=== PATIENT | female | born 1950 | race Caucasian/White ===

== ENCOUNTER 2019-06-30 07:43 | Day surgery (SDC) | payer OTHER ==
[2019-06-24 08:41] VITALS: BMI 27.5
[2019-06-30] MEDS ORDERED: PROPOFOL 20 ML ONE (08:38)
[2019-06-30] MEDS ORDERED: MIDAZOLAM HCL 2 MG/2 ML SINGLE DOSE VIAL ONE (08:39)
[2019-06-30] MEDS ORDERED: LIDOCAINE HCL 2% (20ML MULTI-DOSE VIAL) ONE (08:52)
[2019-06-30] MEDS ORDERED: DEXAMETHASONE SOD PHOSPHATE 4 MG/1 ML VIAL ONE (08:55)
[2019-06-30] MEDS ORDERED: KETOROLAC TROMETHAMINE 30 MG/1 ML VIAL ONE (08:55)
[2019-06-30] MEDS ORDERED: LIDOCAINE HCL/PF 2% SDV 5ML VIAL ONE (08:55)
[2019-06-30] MEDS ORDERED: ONDANSETRON 4 MG/2 ML VIAL ONE (08:55)
[2019-06-30] MEDS ORDERED: LIDOCAINE HCL 1%, 10 MG/ML (50 mL VIAL) IJ ONE (09:15)
[2019-06-30 09:53] VITALS: PULSE 58; TEMP 98.1
[2019-06-30 10:38] VITALS: BP 116/58
--- NOTE | 2019-07-01 18:58 | OP ---
DATE OF OPERATION: 06/30/2019 PREOPERATIVE DIAGNOSIS: Left carpal tunnel syndrome. POSTOPERATIVE DIAGNOSIS: Left carpal tunnel syndrome. OPERATIVE PROCEDURE: Left carpal tunnel release. SURGEON: Amadeo Bass MD ANESTHESIA: Local sedation. COMPLICATIONS: None. ESTIMATED BLOOD LOSS: Minimal. INDICATION FOR PROCEDURE: The patient is a 69-year-old female with above findings indicated for operative treatment. Risks, benefits, and alternatives were discussed with patient at length. Proper informed consent was obtained. DESCRIPTION OF PROCEDURE: After proper identification of the patient and the correct operative site, patient was brought to the operating room and placed supine on the operating table. All bony prominences were well padded. Sedation was given by the anesthesiologist. Local anesthesia was given. Left upper extremity was prepped and draped in usual sterile fashion. A well-padded tourniquet was placed over the sterile prep. Esmarch bandage was used to exsanguinate left upper extremity. Tourniquet was inflated to 250 mmHg. A longitudinal incision was made over the proximal aspect of the palm. Incision was taken sharply through skin with blunt and sharp dissection through subcutaneous tissue. Palmar fascia was divided longitudinally. Transverse carpal ligament was divided longitudinally along with the distal 4 cm of the antebrachial fascia under direct visualization with loupe magnification. This provided complete release of the median nerve of the wrist. Wound was irrigated and repaired with 5-0 nylon fast absorbing plain gut suture. Sterile dressings were applied. Patient was brought to the recovery room in stable condition. She tolerated the procedure well. Angeline [id number]
== END 2019-06-30 10:35 | disposition home or self-care (01) ==
LOC: FASU 07:43
PROVIDERS: ATTEND Orthopaedic Surgery Hand Surgery
PROC: 01N50ZZ Release Median Nerve, Open Approach (ICD-10-PCS; principal; 2019-06-30 09:30)
DX: G56.02 Carpal tunnel syndrome, left upper limb (principal)